=== PATIENT | female | born 1955 | race Caucasian/White ===

== ENCOUNTER 2016-06-30 09:14 | Emergency (ER) | payer OTHER ==
[2016-06-30 09:47] VITALS: BP 142/84
--- NOTE | 2016-06-30 10:23 | UC ---
Complaint Female HPI - HPI Summary HPI Summary: pain and burning with urination for 2 days, also has urgency and frequency - History Of Current Complaint Hx Obtained From: Patient ?: No Onset/Duration: Sudden Onset, Lasting Days - 2, Still Present Timing: Constant Severity Initially: Moderate Severity Currently: Moderate Pain Intensity: 6 Pain Scale Used: 0-10 Numeric Character: Burning Aggravating Factor(s): Urination Associated Signs And Symptoms: Positive: Negative <Hayley Kim - Last Filed: 06/30/16 11:16> <Kita Garcia - Last Filed: 06/30/16 12:05> - History Of Current Complaint Chief Complaint: UCGU Stated Complaint: URINARY ISSUE Time Seen by Provider: 06/30/16 09:42 - Allergies/Home Medications Allergies/Adverse Reactions: Allergies Allergy/AdvReac Type Severity Reaction Status Date / Time Sulfacetamide Allergy Severe Difficulty Verified 06/30/16 09:21 Breathing/Wheezing Varenicline [From Chantix] Allergy Severe Difficulty Verified 06/30/16 09:21 Breathing Iodine Allergy Intermediate Rash Verified 06/30/16 09:21 Hydrocodone Allergy Mild Rash And Verified 06/30/16 09:21 Itching Cephalosporins Allergy Unknown Verified 06/30/16 09:21 Reaction Details Doxycycline Allergy Swelling Verified 06/30/16 09:21 Latex Allergy Rash Verified 06/30/16 09:21 Penicillins Allergy Rash And Verified 06/30/16 09:21 Itching Varicella Virus Vaccine Live Allergy Rash Verified 06/30/16 09:21 Codeine AdvReac Intermediate confusion Verified 06/30/16 09:21 Morphine AdvReac Intermediate See Comment Verified 06/30/16 09:21 Home Medications: Home Medications Cholecalciferol [Vitamin D3] 1,000 unit PO DAILY 06/30/16 [History Confirmed 12/09] Cyanocobalamin TAB* [Vitamin B12 TAB*] 500 mcg PO DAILY 06/30/16 [History Confirmed 06/30/16] Triamcinolone NASAL SPRAY* [Nasacort Aq Nasal [place]*] 1 puff NASAL DAILY [History Confirmed 06/30/16] PMH/Surg Hx/FS Hx/Imm Hx Previously Healthy: No Endocrine History Of: Reports: Diabetes - type 2, Thyroid Disease - hypothroid, Hypothyroidism Cardiovascular History Of: Reports: Hypertension Denies: Cardiac Disorders, Pacemaker/ICD Respiratory History Of: Reports: COPD, Asthma GI/ History Of: Reports: Gastroesophageal Reflux Denies: Ulcer, Renal Disease Neurological History Of: Denies: CVA, Dementia, Seizures Psychological History Of: Reports: Anxiety Cancer History Of: Denies: Breast Cancer Other History Of: Negative For: Anticoagulant Therapy - Surgical History Surgical History: Yes Surgery Procedure, Year, and Place: tubal ligation. tony, appe. RBKA - Family History Known Family History: Positive: None - REVIEWED & NONCONTRIBUTORY, Cardiac Disease, Hypertension - Social History Occupation: Disabled Lives: Alone Alcohol Use: None Substance Use Type: None Smoking Status (MU): Former Smoker - Immunization History Most Recent Influenza Vaccination: fall 2015 <Hayley Kim - Last Filed: 06/30/16 11:16> Review of Systems Constitutional: Negative Skin: Negative Eyes: Negative ENT: Negative Respiratory: Negative Cardiovascular: Negative Gastrointestinal: Negative Genitourinary: Dysuria, Frequency, Urgency Motor: Negative Neurovascular: Negative Musculoskeletal: Negative Neurological: Negative Psychological: Negative All Other Systems Reviewed And Are Negative: Yes <Hayley Kim - Last Filed: 06/30/16 11:16> Physical Exam Triage Information Reviewed: Yes Appearance: Well-Appearing, No Pain Distress, Obese Vital Signs: Initial Vital Signs Temp 100.0 F 06/30/16 09:26 Pulse 74 06/30/16 09:26 Resp 16 06/30/16 09:26 BP 142/84 06/30/16 09:26 Pulse Ox 95 06/30/16 09:26 Vital Signs Reviewed: Yes Eye Exam: Normal Eyes: Positive: Conjunctiva Clear ENT Exam: Normal ENT: Positive: Normal ENT inspection, Hearing grossly normal. Negative: Nasal congestion, Nasal drainage, Trismus, Muffled/hoarse voice Dental Exam: Normal Neck exam: Normal Neck: Positive: Supple, Nontender Respiratory Exam: Normal Respiratory: Positive: Chest non-tender, Lungs clear, Normal breath sounds, No respiratory distress, No accessory muscle use Cardiovascular Exam: Normal Cardiovascular: Positive: RRR, No Murmur, Pulses Normal, Brisk Capillary Refill Abdominal Exam: Normal Abdomen Description: Positive: No Organomegaly, Soft, Other: - supra pubic discomfort Bowel Sounds: Positive: Present Musculoskeletal Exam: Normal Musculoskeletal: Positive: Strength Limited @ - chronic ra, ROM Limited @ - chronic rz Neurological Exam: Normal Neurological: Positive: Alert, Muscle Tone Normal Psychological Exam: Normal Skin Exam: Normal <Hayley Kim - Last Filed: 06/30/16 11:16> Vital Signs: Initial Vital Signs Temp 100.0 F 06/30/16 09:26 Pulse 74 06/30/16 09:26 Resp 16 06/30/16 09:26 BP 142/84 06/30/16 09:26 Pulse Ox 95 06/30/16 09:26 <Kita Garcia - Last Filed: 06/30/16 12:05> Diagnostics - Laboratory Diagnostic Studies Completed/Ordered: +1 leuks, hemolized blood <Hayley Kim - Last Filed: 06/30/16 11:16> Complaint Female Dx - Course Course Of Treatment: Cipro for 7 days , pyridium for 2 days, increase fluids follow with pcp - Differential Dx/Diagnosis Differential Diagnosis/HQI/PQRI: Renal Colic, Ureteral Stone, Urinary Tract Infection Provider Diagnoses: UTI, DMT2 <Hayley Kim - Last Filed: 06/30/16 11:16> Discharge <Hayley Kim - Last Filed: 06/30/16 11:16> <Kita Garcia - Last Filed: 06/30/16 12:05> - Discharge Plan Condition: Stable Disposition: HOME Prescriptions: Ciprofloxacin TAB* [Cipro 250 MG Tab*] 250 mg PO BID #14 tab Phenazopyridine TAB* [Pyridium TAB*] 100 mg PO TID #6 tab Patient Education Materials: Urinary Tract Infection in Women (ED) Referrals: Silver Danile DO [Primary Care Provider] - 2 Weeks Attestations User Type: Provider - I was available for consult. This patient was seen by the DANYELL. The patient was not presented to, seen by, or examined by me. <Kita Garcia - Last Filed: 06/30/16 12:05>
== END 2016-06-30 10:24 | disposition home or self-care (01) ==
LOC: UCEAST 09:14
DX: N39.0 Urinary tract infection, site not specified (principal); E11.9 Type 2 diabetes mellitus without complications; E66.9 Obesity, unspecified; Z88.1 Allergy status to other antibiotic agents; Z88.5 Allergy status to narcotic agent; Z88.0 Allergy status to penicillin; Z88.2 Allergy status to sulfonamides; Z88.8 Allergy status to other drugs, medicaments and biological substances; Z87.891 Personal history of nicotine dependence
CPT/HCPCS: 81003; 87086; 99212; G0463

== ENCOUNTER 2016-10-08 09:59 | Emergency (ER) | payer OTHER ==
--- NOTE | 2016-10-08 12:00 | ED ---
Upper Extremity Pain - HPI Summary HPI Summary: 61 y/o female presents on a wheelchair to the urgent care c/o RT hand pain after stopping an automatic door at home 1 week ago. Pt reports she has taking tramadol to alleviate symptoms, but her pain is not resolving. Pain is 8/10 with movement. She wants to make sure she doesn't have a fracture. Patient denies swelling or redness of RT hand, SOB, chest pain, N/V/D, Pt is RT hand dominant. - History of Current Complaint Chief Complaint: UCUpperExtremity Stated Complaint: HAND PAIN Time Seen by Provider: 10/08/16 11:41 Hx Obtained From: Patient Hx Last Menstrual Period: menopausal Mechanism Of Injury: Blunt Trauma - trying to stop an automatic door at home Onset/Duration: Started Days Ago, Still Present Timing: Lasting Seconds - specially with movement, Lasting Days Severity Initially: Moderate Severity Currently: Moderate Pain Location: Hand - RT ventral side of hand Character: Sharp - shooting pain with movement Aggravating Factor(s): Movement, Flexion, Extension, Twisting Alleviating Factor(s): Rest, Ice Associated Signs & Symptoms: Positive: Numbness/Tingling. Negative: Swelling, Redness, Fever, Chest Pain, SOB, Nausea, Vomiting - Risk Factors Non-Orthopedic Risk Factor: Negative DVT Risk Factors: Negative Septic Arthritis Risk Factor: Negative - Allergies/Home Medications Allergies/Adverse Reactions: Allergies Allergy/AdvReac Type Severity Reaction Status Date / Time Sulfacetamide Allergy Severe Difficulty Verified 06/30/16 09:21 Breathing/Wheezing Varenicline [From Chantix] Allergy Severe Difficulty Verified 06/30/16 09:21 Breathing Iodine Allergy Intermediate Rash Verified 06/30/16 09:21 Hydrocodone Allergy Mild Rash And Verified 06/30/16 09:21 Itching Cephalosporins Allergy Unknown Verified 06/30/16 09:21 Reaction Details Doxycycline Allergy Swelling Verified 06/30/16 09:21 Latex Allergy Rash Verified 06/30/16 09:21 Penicillins Allergy Rash And Verified 06/30/16 09:21 Itching Varicella Virus Vaccine Live Allergy Rash Verified 06/30/16 09:21 Codeine AdvReac Intermediate confusion Verified 06/30/16 09:21 Morphine AdvReac Intermediate See Comment Verified 06/30/16 09:21 Home Medications: Home Medications Albuterol HFA INHALER* [Ventolin HFA Inhaler*] 2 puff INH Q4H PRN 10/08/16 [ History Confirmed 10/08/16] Betamethasone Sasha 0.1% CM(NF) [Valisone 0.1% CM(NF)] 1 applic VAGINAL BID [History Confirmed 10/08/16] Glipizide [Glipizide ER] 5 mg PO DAILY 10/08/16 [History Confirmed 10/08/16] Losartan/HCTZ 100/25 (NF) [Hyzaar 100/25 (NF)] 1 tab PO DAILY 10/08/16 [History Confirmed 10/08/16] Tramadol-Acetaminophen [Ultracet] 1 tab PO Q4H PRN 10/08/16 [History Confirmed 10/08/16] PMH/Surg Hx/FS Hx/Imm Hx Endocrine/Hematology History: Reports: Hx Diabetes - type 2, Hx Thyroid Disease - hypothroid Denies: Hx Anticoagulant Therapy Cardiovascular History: Reports: Hx Hypertension Denies: Hx Pacemaker/ICD Respiratory History: Reports: Hx Asthma, Hx Chronic Obstructive Pulmonary Disease (COPD) GI History: Denies: Hx Ulcer History: Denies: Hx Renal Disease Musculoskeletal History: Reports: Hx Osteoporosis Neurological History: Denies: Hx Dementia, Hx Seizures Psychiatric History: Reports: Hx Anxiety, Hx Substance Abuse - Cancer History Hx Chemotherapy: No Hx Radiation Therapy: No - Surgical History Surgery Procedure, Year, and Place: tubal ligation. otny, appe. RBKA - Immunization History Date of Tetanus Vaccine: unknown Date of Influenza Vaccine: unknown Infectious Disease History: No Infectious Disease History: Denies: Hx Clostridium Difficile, Hx Hepatitis, Hx Human Immunodeficiency Virus (HIV), Hx of Known/Suspected MRSA, Hx Shingles, Hx Tuberculosis, Hx Known/ Suspected VRE, Hx Known/Suspected VRSA, History Other Infectious Disease, Traveled Outside the [place] in Last 30 Days - Family History Known Family History: Positive: None - REVIEWED & NONCONTRIBUTORY, Cardiac Disease, Hypertension - Social History Alcohol Use: None Hx Substance Use: No Substance Use Type: Reports: None Hx Tobacco Use: Yes Smoking Status (MU): Former Smoker Review of Systems Constitutional: Negative Eyes: Negative ENT: Negative Cardiovascular: Negative Respiratory: Negative Gastrointestinal: Negative Genitourinary: Negative Musculoskeletal: Other - RT hand pain s/o injury 1 week ago Skin: Negative Neurological: Negative Psychological: Normal All Other Systems Reviewed And Are Negative: Yes Physical Exam Triage Information Reviewed: Yes Vital Signs On Initial Exam: Initial Vitals Temp Pulse Resp BP Pulse Ox 98.7 F 67 16 152/86 100 10/08/16 10:05 10/08/16 10:05 10/08/16 10:05 10/08/16 10:05 10/08/16 10:05 Vital Signs Reviewed: Yes Appearance: Positive: Well-Appearing, No Pain Distress, Well-Nourished, Obese - mobidly Skin: Positive: Warm, Skin Color Reflects Adequate Perfusion, Dry Head/Face: Positive: Normal Head/Face Inspection Eyes: Positive: Normal, EOMI, EARNESTINE, Conjunctiva Clear ENT: Positive: Normal ENT inspection, Hearing grossly normal, Pharynx normal, TMs normal. Negative: Tonsillar swelling, Tonsillar exudate Neck: Positive: Supple, Nontender, No Lymphadenopathy Respiratory/Lung Sounds: Positive: Clear to Auscultation, Breath Sounds Present. Negative: Rales, Wheezes Cardiovascular: Positive: Normal, RRR, Pulses are Symmetrical in both Upper and Lower Extremities, S1, S2. Negative: Leg Edema Left, Leg Edema Right Abdomen Description: Positive: Nontender, No Organomegaly, Soft. Negative: CVA Tenderness (R), CVA Tenderness (L) Bowel Sounds: Positive: Present Musculoskeletal: Positive: Strength/ROM Intact, Pain @ - RT hand palmar at the thenar eminence tenderness on palpation, no swelling, erythema or bruising observed, normal capillary reill, positive pulses of RT arm, positive sensation. Decrease ROM on flexion and extension of Rt hand due to pain. Neurological: Positive: Normal, Sensory/Motor Intact, Alert, Oriented to Person Place, Time, CN Intact II-III, Reflexes Intact Psychiatric: Positive: Normal AVPU Assessment: Alert - GCS: 15 Diagnostics - Vital Signs Vital Signs Temp Pulse Resp BP Pulse Ox 10/08/16 10:05 98.7 F 67 16 152/86 100 - Laboratory Lab Statement: Any lab studies that have been ordered have been reviewed, and results considered in the medical decision making process. Course/Dx - Course Course Of Treatment: 61 y/o female c/o RT hand pain s/p injury 1 week ago. Hx obtained. PE abnormal finding: Musculoskeletal: Positive: Strength/ROM Intact, Pain @ - RT hand palmar at the thenar eminence tenderness on palpation, no swelling, erythema or bruising observed, normal capillary reill, positive pulses of RT arm, positive sensation. Decrease ROM on flexion and extension of Rt hand due to pain. Phalen test: positive. RT hand x-ray 3 views ordered. Result: Positive area of lucency at the base of 4th metacarpal, representing a nondisplaced Fracture. Pt placed on a Co-up wrist splint to keep hand inmobilized and advised to continue taking the tramadol she has at home. Advised to f/u with Orthopedic DR Tenzin Leiva in 1 weeks. Pt understood and agreed. - Diagnoses Differential Diagnosis/HQI/PQRI: Positive: Arthritis, Bursitis, Fracture (Closed ), Septic Arthritis, Strain, Sprain Provider Diagnoses: Metacarpal bone fracture Discharge - Discharge Plan Condition: Stable Disposition: HOME Patient Education Materials: Hand Fracture (ED) Referrals: Silver Daniel DO [Primary Care Provider] - ( ) Tenzin Leiva MD [Medical Doctor] - 2 Days (Pt with possible nondisplaced fracture at the base of the 4th metacarpal. Pt placed on Wrist splint. Please evaluate) Additional Instructions: PLease keep wrist splint at all times, avoid RT hand movement, Apply ice and keep taking the tramadol you have at home to alleviate symptoms. Make appt with Orthopedic Dr Leiva.
[2016-10-08 12:20] VITALS: BP 140/74
--- NOTE | 2016-10-08 12:26 | RAD ---
INDICATION: Right hand injury. TECHNIQUE: 4 views of the right hand were obtained. FINDINGS: The bones are in normal alignment. There is an area of increased lucency at the base of the fourth metacarpal possibly representing a fracture. No other fractures are seen. There is mild to moderate osteoarthritic change in the proximal and distal interphalangeal joints. IMPRESSION: THERE IS AN AREA OF LUCENCY AT THE BASE OF THE FOURTH METACARPAL POSSIBLY REPRESENTING A NONDISPLACED FRACTURE. THIS COULD BE FURTHER EVALUATED WITH A CT OF THE WRIST CLINICALLY NEEDED.
== END 2016-10-08 12:50 | disposition home or self-care (01) ==
LOC: UCEAST 09:59
DX: S62.344A Nondisplaced fracture of base of fourth metacarpal bone, right hand, initial encounter for closed fracture (principal); E11.9 Type 2 diabetes mellitus without complications; Z79.84 Long term (current) use of oral hypoglycemic drugs; E03.9 Hypothyroidism, unspecified; I10 Essential (primary) hypertension; J44.9 Chronic obstructive pulmonary disease, unspecified; M81.0 Age-related osteoporosis without current pathological fracture; F41.9 Anxiety disorder, unspecified; W23.0XXA Caught, crushed, jammed, or pinched between moving objects, initial encounter; Y93.89 Activity, other specified; Y92.019 Unspecified place in single-family (private) house as the place of occurrence of the external cause; Y99.9 Unspecified external cause status; Z87.891 Personal history of nicotine dependence
CPT/HCPCS: 99213; G0463

== ENCOUNTER 2017-06-12 02:24 | Emergency (ER) | payer OTHER ==
[2017-06-12] MEDS ORDERED: DOXYcycline CAP(*) 100 MG PO ONE (02:57)
[2017-06-12] MEDS ORDERED: traMADol TAB* 50 MG PO ONE (02:58)
[2017-06-12] MEDS ORDERED: Levofloxacin TAB* 500 MG PO ONE (02:58)
[2017-06-12] MEDS: Clindamycin CAP* 150 MG PO ONE ×2 (03:08→03:24)
--- NOTE | 2017-06-12 03:56 | ED ---
Sharon Lockwood Julia, scribed for Damari Guerrier MD on 06/12/17 at 0243 . Skin Complaint - HPI Summary HPI Summary: This patient is a 61 year old F BIBA to [facility] with a chief complaint of painful , erythematous, raised area on R lower abdomen noticed last night. Patient denies fever. The patient rates the pain 4/10 in severity. 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 - History of Current Complaint Chief Complaint: EDRashSkinAbscess Time Seen by Provider: 06/12/17 02:29 Stated Complaint: RASH Hx Obtained From: Patient Hx Last Menstrual Period: menopausal Onset/Duration: Still Present Skin Exposure Onset/Duration: Hours Ago - discoverd Timing: Constant Pain Intensity: 4 Pain Scale Used: 0-10 Numeric Skin Location: Abdomen - right lower Character: Pain, Redness, Raised Related History: Diabetes - previous amputation due to diabetic complications - Allergy/Home Medications Allergies/Adverse Reactions: Allergies Allergy/AdvReac Type Severity Reaction Status Date / Time varenicline [From Chantix] Allergy Severe Difficulty Verified 06/12/17 02:35 Breathing codeine Allergy Intermediate confusion Verified 06/12/17 02:35 Iodine and Iodide Containing Allergy Intermediate Rash Verified 06/12/17 02:35 Produc morphine Allergy Intermediate confusion Verified 06/12/17 02:35 Cephalosporins Allergy Unknown Verified 06/12/17 02:35 Reaction Details doxycycline Allergy Swelling Verified 06/12/17 02:35 hydrocodone Allergy Rash And Verified 06/12/17 02:35 Itching latex Allergy Rash Verified 06/12/17 02:35 Penicillins Allergy Rash And Verified 06/12/17 02:35 Itching sulfacetamide Allergy Difficulty Verified 06/12/17 02:35 Breathing/Wheezing varicella virus vaccine live Allergy Rash Verified 06/12/17 02:35 PMH/Surg Hx/FS Hx/Imm Hx Endocrine/Hematology History: Reports: Hx Diabetes - type 2, Hx Thyroid Disease - hypothroid Denies: Hx Anticoagulant Therapy Cardiovascular History: Reports: Hx Hypertension Denies: Hx Pacemaker/ICD Respiratory History: Reports: Hx Asthma, Hx Chronic Obstructive Pulmonary Disease (COPD) GI History: Denies: Hx Ulcer History: Denies: Hx Renal Disease Musculoskeletal History: Reports: Hx Osteoporosis Neurological History: Denies: Hx Dementia, Hx Seizures Psychiatric History: Reports: Hx Anxiety, Hx Substance Abuse - Cancer History Hx Chemotherapy: No Hx Radiation Therapy: No - Surgical History Surgery Procedure, Year, and Place: tubal ligation. clare jimenez. RBKA. RLE amputation - Immunization History Date of Tetanus Vaccine: unknown Date of Influenza Vaccine: unknown Infectious Disease History: No Infectious Disease History: Denies: Hx Clostridium Difficile, Hx Hepatitis, Hx Human Immunodeficiency Virus (HIV), Hx of Known/Suspected MRSA, Hx Shingles, Hx Tuberculosis, Hx Known/ Suspected VRE, Hx Known/Suspected VRSA, History Other Infectious Disease, Traveled Outside the [place] in Last 30 Days - Family History Known Family History: Positive: Cardiac Disease, Hypertension - Social History Alcohol Use: None Hx Tobacco Use: Yes Smoking Status (MU): Former Smoker Review of Systems Negative: Fever Positive: Rash - red raised painful area on lower abdomen All Other Systems Reviewed And Are Negative: Yes Physical Exam - Summary Physical Exam Summary: VITAL SIGNS: Reviewed. GENERAL: Patient is a well-developed and nourished female who is lying comfortable in the stretcher. Patient is not in any acute respiratory distress. HEAD AND FACE: No signs of trauma. No ecchymosis, hematomas or skull depressions. No sinus tenderness. EYES: PERRLA, EOMI x 2, No injected conjunctiva, no nystagmus. EARS: Hearing grossly intact. Ear canals and tympanic membranes are within normal limits. MOUTH: Oropharynx within normal limits. NECK: Supple, trachea is midline, no adenopathy, no JVD, no carotid bruit, no c- spine tenderness, neck with full ROM. CHEST: Symmetric, no tenderness at palpation LUNGS: Clear to auscultation bilaterally. No wheezing or crackles. CVS: Regular rate and rhythm, S1 and S2 present, no murmurs or gallops appreciated. ABDOMEN: Soft, non-tender. No signs of distention. No rebound no guarding, and no masses palpated. Bowel sounds are normal. EXTREMITIES: FROM in all major joints, no edema, no cyanosis or clubbing. Amputation of RLE. NEURO: Alert and oriented x 3. No acute neurological deficits. Speech is normal and follows commands. SKIN: Dry and warm, There is a 2 inch round mild erythema and tenderness of R lower abdominal all Triage Information Reviewed: Yes Vital Signs On Initial Exam: Initial Vitals Temp Pulse Resp BP Pulse Ox 99.4 F 82 16 0/0 94 02/18/18 02:26 18 02:26 06/12/17 02:26 06/12/17 02:26 06/12/17 02:26 Vital Signs Reviewed: Yes Procedures - Procedure Summary Procedure Summary: Needle aspiration yields 1cc of thick blood with no pus, that was sent to the lab. Diagnostics - Vital Signs Vital Signs Temp Pulse Resp BP Pulse Ox 06/12/17 02:26 99.4 F 82 16 0/0 94 - Laboratory Lab Statement: Any lab studies that have been ordered have been reviewed, and results considered in the medical decision making process. Course/Dx - Course Course Of Treatment: Patient presents with painful, erythematous, raised area on R lower abdomen noticed tonight. Patient is diabetic. Needle aspiration reveals thick blood and no pus. Pt is given Clindamycin, Voxycycline, Levaquin, and Tramadol. - Diagnoses Provider Diagnoses: Abdominal wall cellulitis Discharge - Discharge Plan Condition: Stable Disposition: HOME Patient Education Materials: Cellulitis (ED) Referrals: Silver Daniel DO [Primary Care Provider] - 2 Days Additional Instructions: Follow up with your primary care physician in two days. RETURN TO THE EMERGENCY DEPARTMENT FOR CHANGING OR WORSENING SYMPTOMS. The documentation as recorded by the Sharon rivero Julia accurately reflects the service I personally performed and the decisions made by , Damari Guerrier MD.
[2017-06-12 04:26] VITALS: BP 147/74
== END 2017-06-12 04:25 | disposition home or self-care (01) ==
LOC: ED 02:24
DX: L03.311 Cellulitis of abdominal wall (principal); Z88.5 Allergy status to narcotic agent; Z88.0 Allergy status to penicillin; Z88.3 Allergy status to other anti-infective agents; Z91.041 Radiographic dye allergy status; Z87.891 Personal history of nicotine dependence
CPT/HCPCS: 87070; 87205; 99283; A9270-GY

== ENCOUNTER 2017-07-19 03:04 | Emergency (ER) | payer OTHER ==
[2017-07-19 08:50] VITALS: BP 128/80
--- NOTE | 2017-07-21 15:20 | ED ---
Triston Lockwood Angela, scribed for Ariel Sánchez MD on 07/19/17 at 0702 . Allergic Reaction/Systemic - HPI Summary HPI Summary: This pt is a 62 y/o female presenting to [facility] via EMS c/o allergic reaction after eating nectarines this morning. Pt reports she began to feel itchy after eating nectarines. She notes she is unsure if the nectarines had "spray on them " or "something on them." Pt then went to the bathroom and noticed a rash on her right and left arm, as well as rash on her face. Denies throat tightening, difficulty breathing, wheezing, hoarse voice. She reports she took two Benadryl with relief. Pt currently reports feeling better. - History of Current Complaint Chief Complaint: EDAllergicReaction Hx Obtained From: Patient Hx Last Menstrual Period: menopausal Onset/Duration: Started hours ago, Resolved Timing: Lasting Hours Severity Currently: None Pain Intensity: 0 Pain Scale Used: 0-10 Numeric Location: Diffuse Character: Pruritus Aggravating Factor(s): Nothing Alleviating Factor(s): Other - Benadryl Associated Signs And Symptoms: Positive: Rash. Negative: Cough Wheezing, Difficulty Breathing, Hoarseness, Throat Tightening - Allergies/Home Medications Allergies/Adverse Reactions: Allergies Allergy/AdvReac Type Severity Reaction Status Date / Time varenicline [From Chantix] Allergy Severe Difficulty Verified 06/12/17 02:35 Breathing codeine Allergy Intermediate confusion Verified 06/12/17 02:35 Iodine and Iodide Containing Allergy Intermediate Rash Verified 06/12/17 02:35 Produc morphine Allergy Intermediate confusion Verified 06/12/17 02:35 Cephalosporins Allergy Unknown Verified 06/12/17 02:35 Reaction Details doxycycline Allergy Swelling Verified 06/12/17 02:35 hydrocodone Allergy Rash And Verified 06/12/17 02:35 Itching latex Allergy Rash Verified 06/12/17 02:35 Penicillins Allergy Rash And Verified 06/12/17 02:35 Itching sulfacetamide Allergy Difficulty Verified 06/12/17 02:35 Breathing/Wheezing varicella virus vaccine live Allergy Rash Verified 06/12/17 02:35 PMH/Surg Hx/FS Hx/Imm Hx Endocrine/Hematology History: Reports: Hx Diabetes - type 2, Hx Thyroid Disease - hypothroid Denies: Hx Anticoagulant Therapy Cardiovascular History: Reports: Hx Hypertension Denies: Hx Pacemaker/ICD Respiratory History: Reports: Hx Asthma, Hx Chronic Obstructive Pulmonary Disease (COPD) GI History: Denies: Hx Ulcer History: Denies: Hx Renal Disease Musculoskeletal History: Reports: Hx Osteoporosis Neurological History: Denies: Hx Dementia, Hx Seizures Psychiatric History: Reports: Hx Anxiety, Hx Substance Abuse - Cancer History Hx Chemotherapy: No Hx Radiation Therapy: No - Surgical History Surgery Procedure, Year, and Place: tubal ligation. tony, elanae. RBKA. RLE amputation - Immunization History Date of Tetanus Vaccine: unknown Date of Influenza Vaccine: fall 2016 Infectious Disease History: No Infectious Disease History: Denies: Hx Clostridium Difficile, Hx Hepatitis, Hx Human Immunodeficiency Virus (HIV), Hx of Known/Suspected MRSA, Hx Shingles, Hx Tuberculosis, Hx Known/ Suspected VRE, Hx Known/Suspected VRSA, History Other Infectious Disease, Traveled Outside the in Last 30 Days - Family History Known Family History: Positive: Cardiac Disease, Hypertension - Social History Alcohol Use: None Hx Substance Use: No Substance Use Type: Reports: None Hx Tobacco Use: Yes Smoking Status (MU): Former Smoker Review of Systems Negative: Fever Eyes: Negative ENT: Negative Cardiovascular: Negative Respiratory: Negative Genitourinary: Negative Positive: Rash - pruritic Neurological: Negative All Other Systems Reviewed And Are Negative: Yes Physical Exam - Summary Physical Exam Summary: General: No acute distress Appearance: Well-appearing, Well-nourished Skin: Warm Eyes: Normal ENT: Normal Neck: Supple, nontender Respiratory: Clear to auscultation Cardiovascular: Normal S1, S2. No murmurs. Normal distal pulses in tibial and radial bilaterally. Abdomen: Soft, nontender Musculoskeletal: Normal, Strength/ROM Intact Neurological: Normal, A&Ox3 Psychiatric: Normal Triage Information Reviewed: Yes Vital Signs On Initial Exam: Initial Vitals Temp Pulse Resp BP Pulse Ox 98.3 F 91 20 126/66 95 07/19/17 03:05 07/19/17 03:05 07/19/17 03:05 07/19/17 03:05 07/19/17 03:05 Vital Signs Reviewed: Yes Diagnostics - Vital Signs Vital Signs Temp Pulse Resp BP Pulse Ox 07/19/17 04:30 112/83 07/19/17 04:00 61 128/94 94 07/19/17 03:30 65 16 119/83 96 07/19/17 03:23 65 15 97 07/19/17 03:22 131/70 07/19/17 03:05 98.3 F 91 20 126/66 95 - Laboratory Lab Results: Lab Results 07/19/17 Range/Units 06:04 POC Glucose (mg/dL) 120 H (70-100) mg/dL Lab Statement: Any lab studies that have been ordered have been reviewed, and results considered in the medical decision making process. Allergic Reaction Course/Dx - Course Assessment/Plan: no evidence of airway compromise or angioedema, symptoms completely resolved, vital signs wnl, instructed to fu with pmd. agrees to and understands dc instrcuctions. - Diagnoses Provider Diagnoses: Allergic reaction Discharge - Sign-Out/Discharge Documenting (check all that apply): Discharge - discharge to home - Discharge Plan Condition: Improved Disposition: HOME Patient Education Materials: General Allergic Reaction (ED) Referrals: iSlver Daniel DO [Primary Care Provider] - Additional Instructions: PLEASE USE YOUR EPI PEN IF YOU HAVE SYMPTOMS INVOLVING TROUBLE BREATHING OR SPEAKING PLEASE RETURN IMMEDIATELY TO THE ER IF YOU HAVE ANY WORSENING OR CONCERNING SYMPTOMS PLEASE MAKE AN APPOINTMENT TO BE SEEN BY YOUR PRIMARY CARE DOCTOR WITHIN 1 WEEK - Billing Disposition and Condition Condition: IMPROVED Disposition: HOME The documentation as recorded by the Triston rivero Angela accurately reflects the service I personally performed and the decisions made by , Ariel Sánchez MD.
== END 2017-07-19 08:50 | disposition home or self-care (01) ==
LOC: ED 03:04
DX: T78.1XXA Other adverse food reactions, not elsewhere classified, initial encounter (principal); R21 Rash and other nonspecific skin eruption; X58.XXXA Exposure to other specified factors, initial encounter; E11.8 Type 2 diabetes mellitus with unspecified complications; Z79.84 Long term (current) use of oral hypoglycemic drugs; E03.9 Hypothyroidism, unspecified; I10 Essential (primary) hypertension; J44.9 Chronic obstructive pulmonary disease, unspecified; M81.0 Age-related osteoporosis without current pathological fracture; F41.9 Anxiety disorder, unspecified; Z91.040 Latex allergy status; Z88.5 Allergy status to narcotic agent; Z88.0 Allergy status to penicillin; Z88.7 Allergy status to serum and vaccine; Z88.8 Allergy status to other drugs, medicaments and biological substances; Z88.1 Allergy status to other antibiotic agents; Z87.891 Personal history of nicotine dependence
CPT/HCPCS: 99282

== ENCOUNTER 2018-10-22 23:13 | Emergency (ER) | payer MEDICARE, MEDICAID ==
--- NOTE | 2018-10-22 23:53 | ED ---
Substance Abuse/Use - HPI Summary HPI Summary: This patient is a 63 year old F BIBA with a chief complaint of prescription medication overdose at 2200 today. Patient accidentally took her mornings again , so she took one extra dose of Levothyroxine 100mcg, Metformin 1500mg, and Losartan-HCTZ 100mg/25mg. The patient rates the pain 0/10 in severity. Symptoms aggravated by nothing. Symptoms alleviated by nothing. Patient denies fever and PEOPLES. - History Of Current Complaint Chief Complaint: EDOverdose Stated Complaint: ACCIDENTAL OVERDOSE PER EMS Time Seen by Provider: 10/22/18 23:32 Hx Obtained From: Patient Hx Last Menstrual Period: menopausal Ingestion History: Type/Name Of Drug - Prescription medication: Levothyroxine, Metformin, Losartan, Approximate Time Of Ingestion - 2199 Overdose Characteristics: Oral Severity Currently: None Aggravating Factor(s): Nothing Alleviating Factor(s): Nothing Associated Signs And Symptoms: Negative - Fever, PEOPLES - Allergies/Home Medications Allergies/Adverse Reactions: Allergies Allergy/AdvReac Type Severity Reaction Status Date / Time varenicline [From Chantix] Allergy Severe Difficulty Verified 10/23/18 00:29 Breathing codeine Allergy Intermediate confusion Verified 10/23/18 00:29 Iodine and Iodide Containing Allergy Intermediate Rash Verified 10/23/18 00:29 Produc morphine Allergy Intermediate confusion Verified 10/23/18 00:29 Cephalosporins Allergy Unknown Verified 10/23/18 00:29 Reaction Details doxycycline Allergy Swelling Verified 10/23/18 00:29 hydrocodone Allergy Rash And Verified 10/23/18 00:29 Itching latex Allergy Rash Verified 10/23/18 00:29 Penicillins Allergy Rash And Verified 10/23/18 00:29 Itching sulfacetamide Allergy Difficulty Verified 10/23/18 00:29 Breathing/Wheezing varicella virus vaccine live Allergy Rash Verified 10/23/18 00:29 Home Medications: Home Medications Pantoprazole TAB * [Protonix TAB*] 40 mg PO DAILY 10/23/18 [History Confirmed ] metFORMIN* [Glucophage 500 MG TAB *] 1,000 mg PO QPM 10/23/18 [History Confirmed 10/23/18] metFORMIN* [Glucophage 500 MG TAB *] 1,500 mg PO QAM 10/23/18 [History Confirmed 10/23/18] PMH/Surg Hx/FS Hx/Imm Hx Previously Healthy: No Endocrine/Hematology History: Reports: Hx Diabetes - type 2, Hx Thyroid Disease - hypothroid Denies: Hx Anticoagulant Therapy Cardiovascular History: Reports: Hx Hypertension Denies: Hx Pacemaker/ICD Respiratory History: Reports: Hx Asthma, Hx Chronic Obstructive Pulmonary Disease (COPD) GI History: Denies: Hx Ulcer History: Denies: Hx Renal Disease Musculoskeletal History: Reports: Hx Osteoporosis Neurological History: Denies: Hx Dementia, Hx Seizures Psychiatric History: Reports: Hx Anxiety, Hx Substance Abuse - Cancer History Hx Chemotherapy: No Hx Radiation Therapy: No - Surgical History Surgery Procedure, Year, and Place: tubal ligation. tony, appe. RBKA. RLE amputation - Immunization History Date of Tetanus Vaccine: unknown Date of Influenza Vaccine: fall 2016 Infectious Disease History: No Infectious Disease History: Denies: Hx Clostridium Difficile, Hx Hepatitis, Hx Human Immunodeficiency Virus (HIV), Hx of Known/Suspected MRSA, Hx Shingles, Hx Tuberculosis, Hx Known/ Suspected VRE, Hx Known/Suspected VRSA, History Other Infectious Disease, Traveled Outside the [place] in Last 30 Days - Family History Known Family History: Positive: Cardiac Disease, Hypertension - Social History Alcohol Use: None Hx Substance Use: No Substance Use Type: Reports: None Hx Tobacco Use: Yes Smoking Status (MU): Former Smoker Review of Systems Negative: Fever Negative: Headache All Other Systems Reviewed And Are Negative: Yes Physical Exam - Summary Physical Exam Summary: Appearance: Well appearing, no pain distress Skin: warm, dry, reflects adequate perfusion Head/face: normal Eyes: EOMI, EARNESTINE ENT: normal Neck: supple, non-tender Respiratory: CTA, breath sounds present Cardiovascular: RRR, pulses symmetrical Abdomen: non-tender, soft Musculoskeletal: normal, strength/ROM intact Neuro: normal, sensory motor intact, A&Ox3 Triage Information Reviewed: Yes Vital Signs On Initial Exam: Initial Vitals Temp Pulse Resp BP Pulse Ox 98.4 F 82 18 153/69 98 10/22/18 23:20 10/22/18 23:20 10/22/18 23:20 10/22/18 23:20 10/22/18 23:20 Vital Signs Reviewed: Yes Diagnostics - Vital Signs Vital Signs Temp Pulse Resp BP Pulse Ox 10/22/18 23:20 98.4 F 82 18 153/69 98 - Laboratory Lab Statement: Any lab studies that have been ordered have been reviewed, and results considered in the medical decision making process. Course/Dx - Course Course Of Treatment: This patient is a 63 year old F BIBA with a chief complaint of prescription medication overdose at 2200 today. Blood accucheck done. Patient will be discharged w dx of accidental overdose. Patient understands and agrees with this plan. - Diagnoses Differential Diagnosis/HQI/PQRI: Positive: Other - accidental od Provider Diagnoses: Accidental overdose Discharge - Sign-Out/Discharge Documenting (check all that apply): Patient Departure - Discharge Patient Received Moderate/Deep Sedation with Procedure: No - Discharge Plan Condition: Stable Disposition: HOME Referrals: Silver Daniel DO [Primary Care Provider] - 3 Days Additional Instructions: Follow-up with your primary care provider in three days. RETURN TO THE ER FOR WORSENING OR CHANGING SYMPTOMS. - Billing Disposition and Condition Condition: STABLE Disposition: Home - Attestation Statements Document Initiated by Scribe: Yes Documenting Scribe: Keith Zepeda Provider For Whom Scribe is Documenting (Include Credential): Luis Beckman MD Scribe Attestation: Keith Lockwood scribed for Luis Beckman MD on 10/23/18 at 0421. Scribe Documentation Reviewed: Yes Provider Attestation: The documentation as recorded by the Keith rivero accurately reflects the service I personally performed and the decisions made by Luis thomas MD Status of Scribe Document: Viewed
[2018-10-23 04:41] VITALS: BP 125/73
== END 2018-10-23 04:40 | disposition home or self-care (01) ==
LOC: ED 23:13
DX: T38.1X1A Poisoning by thyroid hormones and substitutes, accidental (unintentional), initial encounter (principal); T38.3X1A Poisoning by insulin and oral hypoglycemic [antidiabetic] drugs, accidental (unintentional), initial encounter; T46.5X1A Poisoning by other antihypertensive drugs, accidental (unintentional), initial encounter; E11.9 Type 2 diabetes mellitus without complications; E03.9 Hypothyroidism, unspecified; I10 Essential (primary) hypertension; J44.9 Chronic obstructive pulmonary disease, unspecified; M81.0 Age-related osteoporosis without current pathological fracture; Z79.84 Long term (current) use of oral hypoglycemic drugs; Z79.899 Other long term (current) drug therapy; Z88.5 Allergy status to narcotic agent; Z88.0 Allergy status to penicillin; Z88.2 Allergy status to sulfonamides; Z88.7 Allergy status to serum and vaccine; Z88.8 Allergy status to other drugs, medicaments and biological substances; Z91.041 Radiographic dye allergy status; Z91.040 Latex allergy status; Z87.891 Personal history of nicotine dependence
CPT/HCPCS: 99283

== ENCOUNTER 2019-08-08 10:32 | Emergency (ER) | payer MEDICARE, MEDICAID ==
--- NOTE | 2019-08-08 10:36 | UC ---
Eye Complaint HPI - HPI Summary HPI Summary: 64 y/o female presents to the urgent care c/o right eye discomfort for the past 3 weeks. Pt reports she has Hx of allergic rhinitis and conjunctivitis and she has been using her allergy medications and Alaway ophthalmic drops. However, a few weeks ago she was exposed to someone with pink eye and since then her eye has been red in the morning w/ a glass sensation and some eye yellowish discharge whens she wakes up. She estates mild clear nasal discharge which is her normal for her allergies. She denies fever, cough or being exposed to someone positive for COVID 19. She has Hx of Asthma and COPD and she uses O2 at home. She states her SOB has been her usual. She also thinks she needs new glasses b/c she has been straining her vision lately. She has an appt w/ Decorator Consultant DR Sagastume tomorrow and her PCP on Tuesday for her blood work. Pt denies PEOPLES dizziness, photophotia, eye pain, visual changes, chest pain,abdominal pain, N/V/D, urinary symptoms. - History of Current Complaint Stated Complaint: EYE COMPLAINT Time Seen by Provider: 08/08/19 10:35 Hx Obtained From: Patient Hx Last Menstrual Period: menopausal Onset/Duration: Gradual Onset, Lasting Weeks - 3 weeks, Still Present, Worse Since - 2 days w/ RT eye redness and yellowish discharge Timing: Constant Severity Initially: Mild Severity Currently: Mild Pain Intensity: 2 Pain Scale Used: 0-10 Numeric Location of Injury: Conjunctiva - RT eye redness Character: Foreign Body Sensation Aggravating Factor(s): Blinking Associated Signs And Symptoms: Positive: Drainage (Purulent) - mild yellowish discharge. Negative: Photophobia, Vision Impairment Bilateral, Fever, Swelling - Risk Factors Penetrating Injury Risk Factor: Negative Globe Rupture Risk Factors: Negative Acute Glaucoma Risk Factors: Eye Trauma Optic Artery Occlusion Risk Factors: Negative - Allergies/Home Medications Allergies/Adverse Reactions: Allergies Allergy/AdvReac Type Severity Reaction Status Date / Time varenicline [From Chantix] Allergy Severe Difficulty Verified 10/23/18 00:29 Breathing codeine Allergy Intermediate confusion Verified 10/23/18 00:29 Iodine and Iodide Containing Allergy Intermediate Rash Verified 10/23/18 00:29 Produc morphine Allergy Intermediate confusion Verified 10/23/18 00:29 Cephalosporins Allergy Unknown Verified 10/23/18 00:29 Reaction Details doxycycline Allergy Swelling Verified 10/23/18 00:29 hydrocodone Allergy Rash And Verified 10/23/18 00:29 Itching latex Allergy Rash Verified 10/23/18 00:29 Penicillins Allergy Rash And Verified 10/23/18 00:29 Itching sulfacetamide Allergy Difficulty Verified 10/23/18 00:29 Breathing/Wheezing varicella virus vaccine live Allergy Rash Verified 10/23/18 00:29 Home Medications: Home Medications Diltiazem CD CAP* [Cardizem CD CAP*] 300 mg PO QPM 03/05/13 [History Confirmed 10/23/18] diPHENhydraMINE PO* [Benadryl PO 25 MG TAB*] 25 mg PO QPM 03/05/13 [History Confirmed 10/23/18] Albuterol 2.5MG/3ML (0.083%)* [Ventolin 2.5 MG/3 ML NEB.LADARIUS*] 1 neb INH Q6HR PRN 01/02/14 [History Confirmed 10/23/18] Ketotifen Fumarate (Ophth) [Alaway] 2 drop BOTH EYES BID 01/02/14 [History Confirmed 10/23/18] Tiotropium [place] Monohydrate [Spiriva Handihaler] 18 mcg INH DAILY 01/02/14 [ History Confirmed 10/23/18] Fluticasone-Salmeterol 500-50* [Advair Diskus 500-50*] 1 puff INH BID 02/08/15 [ History Confirmed 10/23/18] Cholecalciferol TAB* [Vitamin D TAB*] 5,000 unit PO DAILY 01/28/16 [History Confirmed 10/23/18] Levothyroxine TAB* [Synthroid 88 MCG TAB*] 100 mcg PO DAILY 01/28/16 [History Confirmed 10/23/18] Magnesium Oxide TAB* [MagOx 400 TAB*] 400 mg PO DAILY 01/28/16 [History Confirmed 10/23/18] Cholecalciferol (Vitamin D3) [Vitamin D3] 1,000 unit PO DAILY 06/30/16 [History Confirmed 10/23/18] Cyanocobalamin TAB* [Vitamin B12 TAB*] 500 mcg PO DAILY 06/30/16 [History Confirmed 10/23/18] Triamcinolone NASAL SPRAY* [Nasacort Aq Nasal [place]*] 1 puff NASAL BID PRN 06/30 [History Confirmed 10/23/18] Albuterol HFA INHALER* [Ventolin HFA Inhaler*] 2 puff INH Q4H PRN 10/08/16 [ History Confirmed 10/23/18] Losartan/HCTZ 100/25 (NF) [Hyzaar 100/25 (NF)] 1 tab PO DAILY 10/08/16 [History Confirmed 10/23/18] glipiZIDE [Glipizide ER] 5 mg PO DAILY 10/08/16 [History Confirmed 10/23/18] Pantoprazole TAB * [Protonix TAB*] 40 mg PO DAILY 10/23/18 [History Confirmed ] metFORMIN* [Glucophage 500 MG TAB *] 1,000 mg PO QPM 10/23/18 [History Confirmed 10/23/18] metFORMIN* [Glucophage 500 MG TAB *] 1,500 mg PO QAM 10/23/18 [History Confirmed 10/23/18] Ciprofloxacin 0.3% OPTH.LADARIUS* [Cipro 0.3% Opth*] 1 drop RIGHT EYE Q2H #1 btl [Rx] Hydroxychloroquine 200 MG TAB* [Plaquenil 200 MG TAB*] 1 tab PO EVERY OTHER DAY 08/08/19 [History Confirmed 08/08/19] PMH/Surg Hx/FS Hx/Imm Hx Previously Healthy: Yes Endocrine History: Diabetes Other Endocrine History: Rheumathoid arthritis Cardiovascular History: Hypertension - seasonal allergies Respiratory History: COPD, Asthma GI/ History: Gastroesophageal Reflux Other History Of: Negative For: Anticoagulant Therapy - Surgical History Surgical History: Yes Surgery Procedure, Year, and Place: tubal ligation. tony, appe. RBKA. RLE amputation - Family History Known Family History: Positive: Cardiac Disease, Hypertension - Social History Occupation: Disabled, Retired Lives: Alone Alcohol Use: None Substance Use Type: None Smoking Status (MU): Former Smoker - Immunization History Most Recent Influenza Vaccination: fall 2015 Review of Systems All Other Systems Reviewed And Are Negative: Yes Constitutional: Positive: Negative Skin: Positive: Negative Eyes: Positive: Drainage - mild yellowish RT eye discharge in the morning, Eye Redness - RT eye. Negative: Blurred Vision, Diplopia, Photophobia ENT: Positive: Nasal Discharge - clear Respiratory: Positive: Negative Cardiovascular: Positive: Negative Gastrointestinal: Positive: Negative Genitourinary: Positive: Negative Motor: Positive: Negative Neurovascular: Positive: Negative Musculoskeletal: Positive: Negative Neurological/Mental Status: Positive: Negative Psychological: Positive: Negative Is Patient Immunocompromised?: No Physical Exam - Summary Physical Exam Summary: Vital Signs Reviewed: Yes General: Well appearing, well nourished women in no apparent pain distress Eyes: Positive: RT Conjunctiva Inflamed - Visual acuity: WNL,Visual dickerson: full to confrontation. PERRLA, EOMI intact w/out limitation or complaint of pain. eyelashes clear. mild tearing and yellowish drainage observed. No ciliary flush. No chemosis, No photophobia. fundoscopic exam: possible diabetic retinopathy, no proptosis, exophthalmos, nystagmus. ENT: Positive: Normal ENT inspection, Hearing grossly normal, Pharynx normal, Nasal congestion, Nasal drainage - clear, TMs normal - B/L external ear canal clear , TM's WNL. Negative: Tonsillar swelling, Tonsillar exudate Neck: Positive: Supple, Nontender, No Lymphadenopathy Respiratory: Positive: Chest nontender, Lungs clear, Normal breath sounds, No respiratory distress Cardiovascular: Positive: RRR, No Murmur, Pulses Normal, Brisk Capillary Refill Abdomen Description: Positive: Nontender, No Organomegaly, Soft. Negative: CVA Tenderness (R), CVA Tenderness (L) Bowel Sounds: Positive: Present Musculoskeletal: Positive: Strength Intact, ROM Intact, No Edema Neurological Exam: Normal Psychological Exam: Normal Skin Exam: Normal Triage Information Reviewed: Yes Eye Complaint Course/Dx - Course Course Of Treatment: 64 y/o female presents to the urgent care c/o right eye discomfort for the past 3 weeks. Pt reports she has Hx of allergic rhinitis and conjunctivitis and she has been using her allergy medications and Alaway ophthalmic drops. However, a few weeks ago she was exposed to someone with pink eye and since then her eye has been red in the morning w/ a glass sensation and some eye yellowish discharge whens she wakes up. She estates mild clear nasal discharge which is her normal for her allergies. She denies fever, cough or being exposed to someone positive for COVID 19. She has Hx of Asthma and COPD and she uses O2 at home. She states her SOB has been her usual. She also thinks she needs new glasses b/c she has been straining her vision lately. She has an appt w/ Decorator Consultant DR Sagastume tomorrow and her PCP on Tuesday for her blood work. Pt denies PEOPLES dizziness, photophotia, eye pain, visual changes, chest pain,abdominal pain, N/V/D, urinary symptoms. Hx obtained. Pt is hemodynamically stable, A&OX3, PE abnormal findings: B/L PERRLA, EOMI, fundi grossly normal, no tender to palpation. RT conjunctiva mildly injected, mild yellowish discharge, LF conjunctiva clear. Bacterial conjunctivitis vs allergic conjunctivitis and also Diabetic Rethinopathy. Pt has already used Alaway ophthalmic drops at home. Pt Rx Ciprofloxacin ophthalmic drops and strongly advised to f/u w/ her pneumatic deicer inspector DR Sagastume tomorrow for further evaluation and treatment. Pt's BP is elevated today and advised to decrease salt in diet, monitor BP and f/u with PCP if BP continues to be elevated for further management. Pt understood and agreed w/ plan of care. - Differential Dx/Diagnosis Differential Diagnosis/HQI/PQRI: Conjunctivitis, Corneal Abrasion, Foreign Body , Glaucoma, Keratitis, Periorbital Cellulitis, Uveitis Provider Diagnosis: Conjunctivitis of right eye, Uncontrolled hypertension Discharge ED - Sign-Out/Discharge Documenting (check all that apply): Patient Departure - D/c home All imaging exams completed and their final reports reviewed: No Studies - Discharge Plan Condition: Stable Disposition: HOME Prescriptions: Ciprofloxacin 0.3% OPTH.LADARIUS* [Cipro 0.3% Opth*] 1 drop RIGHT EYE Q2H #1 btl Patient Education Materials: Diabetic Retinopathy (ED), Conjunctivitis (ED) Referrals: Silver Daniel DO [Doctor of Osteopathy] - 1 Day Kaiser Sagastume MD [Medical Doctor] - 1 Day Additional Instructions: 1-Please apply Ciprofloxacin ophthalmic drops as instructed and finish the full course of treatment to avoid recurrent infection. Encourage hand washing to avoid spread to the other eye. Symptoms probably started as allergic conjunctivitis avoid rubbing your eyes. 2- Please f/u with your pneumatic deicer inspector DR Sagastume in your appt tomorrow for further evaluation and treatment. 3- Your BP is elevated today and advised to decrease salt in diet, monitor BP and f/u with PCP for further management. Please f/u w/ your PCP On your appt Tuesday for further management on your DM type II and COPD - Billing Disposition and Condition Condition: STABLE Disposition: Home - Attestation Statements Provider Attestation: This patient was not seen by me. I was available for consult Chart reviewed. YAQUELIN
[2019-08-08 10:41] VITALS: BP 152/81
== END 2019-08-08 11:38 | disposition home or self-care (01) ==
LOC: UCEAST 10:32
DX: H10.31 Unspecified acute conjunctivitis, right eye (principal); I10 Essential (primary) hypertension; J44.9 Chronic obstructive pulmonary disease, unspecified; Z99.81 Dependence on supplemental oxygen; E11.9 Type 2 diabetes mellitus without complications; Z79.84 Long term (current) use of oral hypoglycemic drugs; K21.9 Gastro-esophageal reflux disease without esophagitis; M06.9 Rheumatoid arthritis, unspecified; Z88.5 Allergy status to narcotic agent; Z88.2 Allergy status to sulfonamides; Z88.7 Allergy status to serum and vaccine; Z88.1 Allergy status to other antibiotic agents; Z88.3 Allergy status to other anti-infective agents; Z91.040 Latex allergy status; Z87.891 Personal history of nicotine dependence
CPT/HCPCS: 99202; G0463